=== PATIENT | female | born 1990 | race Caucasian/White ===

== ENCOUNTER 2016-06-11 16:15 | Outpatient (CLI) | payer BC ==
[~2016-06-11] VITALS: Ht 170.2 cm; Wt 78.7 kg
[~2016-06-11 16:15] MED LIST: PREN1TAB49 PO
[2016-06-11 16:24] VITALS: Ht 170.2 cm; Wt 78.7 kg
[2016-06-11] MEDS ORDERED: FER325 PO (16:24)
[2016-06-11 16:25] VITALS: BP 119/62; PULSE 92; RESP 18
--- NOTE | 2016-06-11 17:22 | RADRPT ---
PROCEDURE: US OB. CLINICAL INDICATION: Diabetes TECHNIQUE: Multiple sonographic images of the pelvis were obtained. The images were reviewed on a PACS workstation. COMPARISON: No prior studies are available for comparison. FINDINGS: There is a single live intrauterine . cardiac activity is identified at a rate of 15 7 beats per minute. presentation is cephalic. Placenta is left lateral posterior grade II Biophysical profile score is as follows: Breathing 2 Movements 2 Tone 2 Fluid volume 2 Amniotic fluid index = 21.2 cm Total biophysical profile score = 8/8 IMPRESSION: Biophysical profile score = 8/8 Mild polyhydramnios RPTAT: HH .Nasir Rangel MD, MD Date Time Electronically viewed and signed by .Nasir Rangel MD, on 06/11/2016 17:21 .W/
--- NOTE | 2016-06-11 17:39 | TRIAGE ---
OB Triage Datetime Report Generated by CPN: 06/11/2016 17:38 Datetime: 06/11/2016 16:51 Stage of : OB Triage Maternal Assessment Level of Consciousness: Fully Conscious Labor Evaluation Frequency: OCCASIONAL Monitor Mode: External Quality: Mild Resting Tone [place]: Relaxed Heart Rate FHR Baseline Rate: 135 Monitor Mode: External US Variability: Moderate 6-25 bpm Accelerations: 15X15 Decelerations: None Pain Assessment Pain Scale: 0 Pain Presence: None/Denies Pain Type: N/A Pain Goal: 3 Vaginal Exam Membrane Status: Intact Vaginal Bleeding: None Datetime: 06/11/2016 16:22 Assessment Type: Triage Maternal Assessment Level of Consciousness: Fully Conscious DTR's/Clonus: DTRs 2+; No Clonus Headache: Denies Blurred Vision: No Respiratory Effort: Unlabored; Regular Rhythm; Equal Expansion Breath Sounds, Left: Clear and Equal Breath Sounds, Right: Clear and Equal Nausea/Vomiting: Denies RUQ Epigastric Pain: Denies Lower Extremities Edema: None Degree: None Upper Extremities Edema: None Degree: None Facial Edema: None Fall Risk Assessment History of Falling: (0) No Secondary Diagnosis: (0) No Ambulatory Aid: (0) Bedrest/Nurse Assist IV Therapy: (0) No Gait: (0) Normal/Bedrest/Immobile Mental Status: (0) Oriented to Own Ability Fall Score: 0 Fall Risk Score Definition: No Risk: No action required Datetime: 06/11/2016 16:21 EGA: 37.4 Datetime: 06/11/2016 16:20 Time of Arrival: 06/11/2016 16:11 Arrived By: Ambulatory Arrived From: Home Chief Complaint: PT HERE FOR C/O DFM Movement: Decreased Contractions: Denies/Absent Rupture of Membranes: Denies Vaginal Bleeding: None Vaginal Discharge: Denies Recent Sexual Intercouse: Denies Abdominal Trauma: Not Applicable Patient Complaints: None Time Provider Notified: 06/11/2016 17:00 Provider Notified: DONNY Initial Plan: JIMY/UMAIR
== END 2016-06-11 17:45 | disposition home or self-care (01) ==
LOC: OBT 16:15 → L-D 16:16 → OBT 17:45
PROVIDERS: ATTEND Specialist
DX: O36.8130 Decreased fetal movements, third trimester, not applicable or unspecified (principal); O24.913 Unspecified diabetes mellitus in pregnancy, third trimester; Z3A.37 37 weeks gestation of pregnancy
CPT/HCPCS: 76818; Z7500; G0463

== ENCOUNTER 2016-06-30 04:11 | Inpatient (IN) | payer BC ==
[~2016-06-30] VITALS: Ht 170.2 cm; Wt 82.1 kg
[~2016-06-30 04:11] MED LIST changes: +FER325 PO
[2016-06-30 04:16] VITALS: Ht 170.2 cm; Wt 82.1 kg
[2016-06-30 04:17] VITALS: BP 122/64; PULSE 90; RESP 18
[2016-06-30] MEDS ORDERED: CARBOPROST 250 MCG INJ IM PRN (05:00)
[2016-06-30] MEDS ORDERED: LIDOCAINE 1% (MPF) 30 ML INJ INJ PRN (05:00)
[2016-06-30] MEDS ORDERED: ACETAMINOPHEN/CODEINE #3 TAB PO PRN (05:00)
[2016-06-30] MEDS ORDERED: OXYTOCIN 30 UNITS/LR 500 ML IV PRN (05:00)
[2016-06-30] MEDS ORDERED: MISOPROSTOL 200 MCG TAB PR PRN (05:00)
[2016-06-30] MEDS ORDERED: METHYLERGONOVINE 0.2 MG INJ IM PRN (05:00)
[2016-06-30] MEDS ORDERED: IBUPROFEN 600 MG TAB PO PRN (05:00)
[2016-06-30] MEDS ORDERED: BUTORPHANOL 2 MG INJ IV PRN (05:00)
--- NOTE | 2016-06-30 05:03 | TRIAGE ---
OB Triage Datetime Report Generated by CPN: 06/30/2016 05:03 Datetime: 06/30/2016 04:50 Stage of : OB Triage Temperature Route: Oral Labor Evaluation Frequency: 4-8 Monitor Mode: External Duration (sec)2399: 70-110 Quality: Moderate Pattern: Normal: <= 5 Contractions in 10 Minutes Resting Tone [place]: Relaxed Heart Rate FHR Baseline Rate: 150 Monitor Mode: External US Variability: Moderate 6-25 bpm (Annotations: MIN TOWARDS THE END OF HOUR) Decelerations: None Category: Category I Pain Assessment Pain Scale: 5 Pain Presence: Intermittent Pain Type: Cramping Pain Location: Abdomen; Back Pain Relief Measures: Comfort Measures Datetime: 06/30/2016 04:33 Vaginal Exam Dilatation (cms): 4.5 Effacement (%): 60 Station: -3 Exam By: RBAXTON CHRIS Datetime: 06/30/2016 04:20 Assessment Type: Triage Maternal Assessment Level of Consciousness: Fully Conscious DTR's/Clonus: DTRs 2+; No Clonus Headache: Denies Blurred Vision: No Respiratory Effort: Unlabored; Regular Rhythm; Equal Expansion Breath Sounds, Left: Clear and Equal Breath Sounds, Right: Clear and Equal Nausea/Vomiting: Denies RUQ Epigastric Pain: Denies Lower Extremities Edema: None Upper Extremities Edema: None Facial Edema: None Fall Risk Assessment History of Falling: (0) No Secondary Diagnosis: (0) No Ambulatory Aid: (0) Bedrest/Nurse Assist IV Therapy: (0) No Gait: (0) Normal/Bedrest/Immobile Mental Status: (0) Oriented to Own Ability Fall Score: 0 Fall Risk Score Definition: No Risk: No action required Datetime: 06/30/2016 04:10 Time of Arrival: 06/30/2016 04:00 EGA: 40.2 Arrived By: Ambulatory Arrived From: Home Chief Complaint: CONTRACTIONS SINCE 2099 Movement: Present Contractions: Irregular Time Contractions Began: 06/29/2016 21:00 Contractions: Q 30 Rupture of Membranes: Denies Vaginal Bleeding: None Vaginal Discharge: Denies Patient Complaints: Contractions Time Provider Notified: 06/30/2016 04:35 Provider Notified: FABRICE Initial Plan: EFM, ASSESSMENT, CALL MD FOR ORDERS Datetime: 06/11/2016 16:22 Fall Score: 0 Fall Risk Score Definition: No Risk: No action required Datetime: 06/11/2016 16:21 EGA: 37.4
[2016-06-30 05:04] VITALS: BP 126/75; PULSE 86; RESP 18
[2016-06-30] MEDS: LACTATED RINGER'S 1,000 ML IV SCH ×3 (05:04→21:23)
[2016-06-30 05:45] LABS: INR 0.92; PROTIME 12.4 Sec (12.2-14.2)
[2016-06-30 05:46] LABS: PARTIAL THROMBOPLASTIN TIME 29.8 Sec (25.0-35.0)
[2016-06-30 05:55] LABS: BASOPHILS % 0.3 % (0.0-2.0); EOSINOPHILS # 0.1 10^3/ul (0.0-0.5); EOSINOPHILS % 1.3 % (0.0-7.0); HEMATOCRIT 37.9 % (37.0-47.0); LYMPHOCYTES # 2.1 10^3/ul (0.8-2.9); LYMPHOCYTES % 21.4 % (15.0-51.0); MEAN CORPUSCULAR HEMOGLOBIN 30.2 pg (29.0-33.0); MEAN CORPUSCULAR HGB CONC 34.3 g/dl (32.0-37.0); MEAN CORPUSCULAR VOLUME 88.2 fl (82.0-101.0); MEAN PLATELET VOLUME 11.5 fl (7.4-10.4); MONOCYTE # 0.6 10^3/ul (0.3-0.9); MONOCYTES % 6.4 % (0.0-11.0); NEUTROPHIL # 6.9 10^3/ul (1.6-7.5); NEUTROPHILS % 70.6 % (39.0-77.0); PLATELET COUNT 166 10^3/UL (140-440); RED CELL DISTRIBUTION WIDTH 13.6 % (11.5-14.5); UNCORRECTED WBC 9.8 10^3/ul (4.8-10.8); WHITE BLOOD COUNT 9.8 10^3/ul (4.8-10.8)
--- NOTE | 2016-06-30 05:55 | RADRPT ---
PROCEDURE: Obstetrical ultrasound, limited. CLINICAL INDICATION: Pelvic pain. TECHNIQUE: Multiple sonographic images of the pelvis were obtained using transabdominal technique . Images were obtained with kruger scale and color Doppler. The images were reviewed on a PACS works [employer]. COMPARISON: 06/11/2016. FINDINGS: There is a single living intrauterine gestation with the fetus in a vertex presentation. hear t tones of 139 beats per minute are identified. The placenta is posterior in location, grade 2-3. There is no evidence of placenta previa or abruption. Measurements were made in order to determine age. The results are as follows: BPD =9.82 cm HC =34.38 cm AC =37.81 cm FL =7.82 cm. Estimated gestational age of approximately 40 weeks and 3 days. The EFW = 4255 +/- 638 grams. Estimated weight percentage equals 89.5%. IMPRESSION: Single viable intrauterine gestation of approximately 40 weeks and 3 days. .Geovani Corley MD, MD Date Time Electronically viewed and signed by .Geovani Corley MD, MD on 06/30/2016 05:54 .T/
[2016-06-30 06:52] LABS: CONDITION 1
[2016-06-30] MEDS ORDERED: FENTAnyl 2MCG/ML-ROPIV 0.2% 100 ML ONE (07:40)
[2016-06-30] MEDS ORDERED: LACTATED RINGER'S 1,000 ML IV PRN (08:00)
[2016-06-30] MEDS ORDERED: ONDANSETRON 4 MG INJ IV PRN (09:00)
[2016-06-30] MEDS ORDERED: DIPHENHYDRAMINE 50 MG INJ IV PRN (09:00)
[2016-06-30] MEDS ORDERED: FENTAnyl 2MCG/ML-ROPIV 0.2% 100 ML BAG EPI SCH (09:00)
[2016-06-30] MEDS ORDERED: NALOXONE (0.4 MG/ML) INJ IV PRN (09:00)
[2016-06-30] MEDS ORDERED: OXYTOCIN 30 UNITS/LR 500 ML IVPB ONE (21:00)
[2016-06-30] MEDS ORDERED: OXYTOCIN 30 UNITS/LR 500 ML IV SCH (21:00)
[2016-07-01] MEDS: LACTATED RINGER'S 1,000 ML IV SCH ×2 (05:30→12:41)
--- NOTE | 2016-07-01 07:20 | HP ---
Date/Time of Note Date/Time of Note DATE: 07/01/16 TIME: 07:19 OB - History Hx of Present Chief Complaint: Uterine contractions,in labor. : 2 Para: 1 Care: Good Care Ultrasounds: Normal mid trimester US Obstetrical Complications: None Medical Complications: None Past Family/Social History * Past Medical, Surgical, Family and Obstetric Histories reviewed from chart. OB Admission Exam Vital Signs Vital Signs Vital Signs Date Time Temp Pulse Resp B/P Pulse Ox O2 Delivery O2 Flow Rate FiO2 06/30/16 05:04 98.1 86 18 126/75 Room Air Last 72 hours Lab Results CBC & BMP 06/30/16 04:45 BRADLEY HINES MD Jul 01, 2016 07:20
--- NOTE | 2016-07-01 14:32 | LDN ---
Date/Time of Note Date/Time of Note DATE: 07/01/16 TIME: 14:30 Delivery Summary Spontaneous vaginal delivery baby girl. Placenta Delivered: Spontaneously, Intact & Complete Meconium: none Perineum intact?: No Perineal laceration: 2 Perineal laceration repair: Repaired wit [id number] Anesthesia type: Epidural Estimated blood loss: 300 Sponge & Needle done & correct: Yes All needle counts correct: Yes Any foreign bodies felt in the: No Problems: BRADLEY HINES MD Jul 01, 2016 14:31
--- NOTE | 2016-07-01 14:41 | DELSUM ---
Delivery Summary A-C Datetime Report Generated by CPN: 07/01/2016 14:41 DELIVERY PERSONNEL Branch Assistant: Oanh New MATERNAL INFORMATION Delivery Anesthesia: Epidural Medications in Delivery: Oxytocin 30 units, Cytotec 400mcg MS, Methergine 0.2mg IM Estimated Blood Loss (ml): 300 Placenta Cultured: No Maternal Complications: None LABOR SUMMARY EDC: 06/28/2016 00:00 No. Babies in Womb: 1 Attempted: No Labor Anesthesia: Epidural LABOR INFORMATION Reason for Induction: Postterm Onset of Labor: 06/29/2016 21:00 Complete Dilatation: 07/01/2016 10:42 Cervical Ripening Agents: Other Oxytocin: Augmentation Group B Beta Strep: Negative Antibiotics # of Doses: 0 Antibiotics Time of Last Dose: 0 Steroids Given: None Reason Steroids Not Administered: Not Applicable MEMBRANES Membranes Rupture Method: Artificial Rupture of Membranes: 07/01/2016 07:26 Length of Rupture (hr): 6.23 Amniotic Fluid Color: Clear Amniotic Fluid Amount: Moderate Amniotic Fluid Odor: Normal STAGES OF LABOR Stage 1 hr: 37 Stage 1 min: 42 Stage 2 hr: 2 Stage 2 min: 58 Stage 3 hr: 0 Stage 3 min: 5 Total Time in Labor hr: 40 Total Time in Labor min: 45 VAGINAL DELIVERY Episiotomy: Median Laceration Extension: N/A Laceration Type: None Laceration Repair: Yes Initial Vag Sponge Count: 20 Final Vag Sponge Count: 20 Initial Vag Sharps Count: 3 Final Vag Sharps Count: 3 Sponge Count Correct: Yes; Vaginal Sweep Performed BABY A INFORMATION Infant Delivery Date/Time: 07/01/2016 13:40 Method of Delivery: Vaginal Method of Delivery: Vaginal Born in Route : No : N/A Forceps: N/A Vacuum Extraction: N/A Shoulder Dystocia : N/A SHOULDER DYSTOCIA BABY A Delivery Date/Time: 07/01/2016 13:40 PRESENTATION/POSITION BABY A Presentation: Cephalic Presentation: Cephalic Presentation: Cephalic Presentation: Cephalic Cephalic Presentation: Vertex Vertex Position: Left Occipital Anterior Breech Presentation: N/A PLACENTA INFORMATION BABY A Placenta Delivery Time : 07/01/2016 13:45 Placenta Method of Delivery: Spontaneous Placenta Method of Delivery: Spontaneous Placenta Status: Delivered SCORES BABY A Heart Rate 1 min: >100 bpm Resp Effort 1 min: Good Cry Reflex Irritability 1 min: Cough/Sneeze/Pulls Away Muscle Tone 1 min: Active Motion Color 1 min: Body [place], Extremit Blue Resuscitation Effort 1 min: Tactile Stimulation SCORE 1 MIN: 9 Heart Rate 5 min: >100 bpm Resp Effort 5 min: Good Cry Reflex Irritability 5 min: Cough/Sneeze/Pulls Away Muscle Tone 5 min: Active Motion Color 5 min: Body [place], Extremit Blue Resuscitation Effort 5 min: Tactile Stimulation SCORE 5 MIN: 9 INFANT INFORMATION BABY A Gestational Age at Delivery: 40.3 Gestational Status: Full Term- 39- 40.6 Weeks Outcome : Liveborn Infant Condition : Stable Infant Sex: Female Sex: Female IDENTIFICATION/MEDS BABY A ID Band Number: [id number] ID Band Location: Right Arm; Left Leg Sensor Applied: Yes Sensor Number: [id number] Sensor Location : Cord Clamp Vitamin K Given : Not Given Erythromycin Given: Not Given WEIGHT/LENGTH BABY A Birthweight (gm): 4745 Infant Weight (lb): 10 Infant Weight (oz): 7 Length (in): 22.50 Infant Length (cm): 57.15 CORD INFORMATION BABY A No. Cord Vessels: 3 Nuchal Cord : N/A Cord Blood Taken: Yes Infant Suction: Mouth; Nose ASSESSMENT BABY A Infant Complications: Decreased Variability; Multiple Variable Decels Physical Findings at Delivery: Within Normal Limits Infant Respirations: Appears Normal Cooler Service Supervisor/ALS Called : No Care By: Enrique Gorman RN Transferred To: Remains with Mother
[2016-07-01 16:00] VITALS: BP 119/61; PULSE 89; RESP 16
[2016-07-01] MEDS ORDERED: ZOLPIDEM 5 MG TAB PO PRN (16:00)
[2016-07-01] MEDS ORDERED: ACETAMINOPHEN 325 MG TAB PO PRN ×2 (16:00)
[2016-07-01] MEDS ORDERED: BENZOCAINE 20% 56 ML SPRAY TOP PRN (16:00)
[2016-07-01] MEDS ORDERED: WITCH HAZEL/GLYCERIN PAD PR PRN (16:00)
[2016-07-01] MEDS ORDERED: OXYTOCIN 30 UNITS/LR 500 ML IV PRN (16:00)
[2016-07-01] MEDS ORDERED: ACETAMINOPHEN/CODEINE #3 TAB PO PRN ×2 (16:00)
[2016-07-01] MEDS ORDERED: DIPHENHYDRAMINE 25 MG CAP PO PRN (16:00)
[2016-07-01] MEDS ORDERED: DIBUCAINE 1% 30 GM OINT TOP PRN (16:00)
[2016-07-01] MEDS ORDERED: MISOPROSTOL 200 MCG TAB PR PRN (16:00)
[2016-07-01] MEDS ORDERED: ONDANSETRON 4 MG INJ IV PRN (16:00)
[2016-07-01] MEDS ORDERED: METHYLERGONOVINE 0.2 MG INJ IM PRN (16:00)
[2016-07-01] MEDS ORDERED: ONDANSETRON 4 MG TAB PO PRN (16:00)
[2016-07-01] MEDS ORDERED: NA PHOSPHATE/BIPHOS 133 ML ENEMA PR PRN (16:00)
[2016-07-01] MEDS ORDERED: CARBOPROST 250 MCG INJ IM PRN (16:00)
[2016-07-01] MEDS: OXYTOCIN 30 UNITS/LR 500 ML IV SCH ×2 (18:58→19:51)
[2016-07-01] MEDS: IBUPROFEN 800 MG TAB PO SCH ×2 (18:59→23:38)
[2016-07-01 19:50] VITALS: BP 132/71; PULSE 82; RESP 19
[2016-07-01] MEDS: MAGNESIUM HYDROXIDE 30ML CUP PO SCH (20:42)
[2016-07-02 03:54] VITALS: BP 127/73; PULSE 75; RESP 18
[2016-07-02] MEDS: IBUPROFEN 800 MG TAB PO SCH ×4 (06:03→23:51)
[2016-07-02 08:29] LABS: BASOPHIL # 0.1 10^3/ul (0.0-0.1); BASOPHILS % 0.4 % (0.0-2.0); EOSINOPHILS # 0.1 10^3/ul (0.0-0.5); EOSINOPHILS % 0.7 % (0.0-7.0); HEMATOCRIT 32.8 % (37.0-47.0); HEMOGLOBIN 11.1 g/dl (12.0-16.0); LYMPHOCYTES # 1.7 10^3/ul (0.8-2.9); LYMPHOCYTES % 13.8 % (15.0-51.0); MEAN CORPUSCULAR HEMOGLOBIN 29.8 pg (29.0-33.0); MEAN CORPUSCULAR HGB CONC 33.7 g/dl (32.0-37.0); MEAN CORPUSCULAR VOLUME 88.2 fl (82.0-101.0); MEAN PLATELET VOLUME 11.2 fl (7.4-10.4); MONOCYTE # 0.7 10^3/ul (0.3-0.9); MONOCYTES % 5.8 % (0.0-11.0); NEUTROPHIL # 9.7 10^3/ul (1.6-7.5); NEUTROPHILS % 79.3 % (39.0-77.0); PLATELET COUNT 138 10^3/UL (140-440); RED BLOOD COUNT 3.72 10^6/ul (4.20-5.40); RED CELL DISTRIBUTION WIDTH 13.4 % (11.5-14.5); UNCORRECTED WBC 12.2 10^3/ul (4.8-10.8); WHITE BLOOD COUNT 12.2 10^3/ul (4.8-10.8)
[2016-07-02 08:30] VITALS: BP 105/63; PULSE 83; RESP 20
[2016-07-02 08:38] LABS: CONDITION 1
[2016-07-02] MEDS: FERROUS SULFATE (EC) 325 MG TAB PO SCH (09:52)
[2016-07-02] MEDS: MAGNESIUM HYDROXIDE 30ML CUP PO SCH ×2 (09:52→21:00)
[2016-07-02 16:00] VITALS: BP 107/55; PULSE 90; RESP 18
--- NOTE | 2016-07-02 17:39 | PN ---
Date/Time of Note Date/Time of Note DATE: 07/02/16 TIME: 17:36 OB Subjective Subjective Subjective baby is uer light anxious had b.m OB Objective Objective Objective vss afebrile fundus firm lochia min ext neg for pain pp 12.2 >11.1 <138 32.8 OB Assessment/Plan Other Assessment: stable #1 Other plan: d/s home in am BAUTISTA AVINA MD Jul 02, 2016 17:39
[2016-07-02 19:45] VITALS: BP 120/85; PULSE 64; RESP 19
[2016-07-03 04:39] VITALS: BP 120/60; PULSE 68; RESP 20
[2016-07-03] MEDS: IBUPROFEN 800 MG TAB PO SCH ×2 (05:43→12:00)
--- NOTE | 2016-07-03 07:51 | DS ---
Date/Time of Note Date/Time of Note DATE: 07/03/16 TIME: 07:50 Obstetrical Discharge Record Final Diagnosis Final Diagnosis: Term delivered Vaginal Delivery Obstetrical Delivery: Spontaneous Condition on Discharge Physical Assessment Last Vitals: Afebrile,normal BP. Voiding: Yes Bowel Movement: Yes Breast: Soft, non-tender Fundus: Firm Calf Tenderness: No Patient Condition: Good BRADLEY HINES MD Jul 03, 2016 07:51
--- NOTE | 2016-07-03 07:52 | PD.PPDC ---
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
[2016-07-03 08:15] VITALS: BP 110/65; PULSE 73; RESP 18
[2016-07-03] MEDS ORDERED: DIPHTH/TET/ACEL PERTUSS (ADULT) 0.5 ML VIAL IM* ONE (09:00)
[2016-07-03] MEDS ORDERED: MEASLES,MUMPS,RUBELLA VACCINE INJ SC* ONE (09:00)
[2016-07-03] MEDS: FERROUS SULFATE (EC) 325 MG TAB PO SCH (09:00)
[2016-07-03] MEDS: MAGNESIUM HYDROXIDE 30ML CUP PO SCH (09:00)
== END 2016-07-03 13:00 | disposition home or self-care (01) | DRG 775 ==
LOC: OBT 04:11 → L-D 04:12 → OBT 04:58 → L-D 04:59 → PP1 07-01 15:53
PROVIDERS: ADMIT Specialist; ATTEND Specialist
PROC: 10E0XZZ Delivery of Products of Conception, External Approach (ICD-10-PCS; principal; 2016-07-01)
PROC: 0KQM0ZZ Repair Perineum Muscle, Open Approach (ICD-10-PCS; 2016-07-01)
DX: O70.1 Second degree perineal laceration during delivery (principal); Z37.0 Single live birth; Z3A.40 40 weeks gestation of pregnancy
CPT/HCPCS: 36415; 62319; 76815; 85025; 85610; 85730; 86592; 86900; 86901; 90715; G0463; J2210; J2590; J3010; J7120